=== PATIENT | male | born 1990 | race Two or more races ===

== ENCOUNTER 2016-10-29 01:49 | Emergency (ER) | payer MEDICAID ==
[~2016-10-29] VITALS: Ht 180.3 cm; Wt 88.2 kg
[2016-10-29] MEDS ORDERED: TETANUS-DIPTH-ACEL PERTUSSIS 0.5ML SYRG IM ONE (08:15)
[2016-10-29 08:26] VITALS: BP 129/95
[2016-10-29] MEDS ORDERED: HYDROcodone-ACET 5/325MG TAB PO ONE (08:30)
== END 2016-10-29 08:48 | disposition home or self-care (01) ==
LOC: ER 01:51
DX: S02.642A Fracture of ramus of left mandible, initial encounter for closed fracture (principal); S01.81XA Laceration without foreign body of other part of head, initial encounter; F17.210 Nicotine dependence, cigarettes, uncomplicated; F12.10 Cannabis abuse, uncomplicated; Z23 Encounter for immunization; Y04.8XXA Assault by other bodily force, initial encounter; Y93.89 Activity, other specified; Y99.8 Other external cause status; Y92.89 Other specified places as the place of occurrence of the external cause
CPT/HCPCS: 12011; 70486; 90471; 90715

== ENCOUNTER 2017-08-22 10:02 | Emergency (ER) | payer MEDICAID ==
[~2017-08-22] VITALS: Ht 180.3 cm; Wt 77.1 kg
[2017-08-22 10:13] VITALS: BP 141/92
== END 2017-08-22 11:06 | disposition home or self-care (01) ==
LOC: ER 10:02
DX: S46.912A Strain of unspecified muscle, fascia and tendon at shoulder and upper arm level, left arm, initial encounter (principal); F17.210 Nicotine dependence, cigarettes, uncomplicated; H91.92 Unspecified hearing loss, left ear; X58.XXXA Exposure to other specified factors, initial encounter; Y93.61 Activity, american tackle football; Y92.89 Other specified places as the place of occurrence of the external cause; Y99.8 Other external cause status

== ENCOUNTER 2018-11-11 20:12 | Emergency (ER) | payer MEDICAID ==
[~2018-11-11] VITALS: Ht 180.3 cm; Wt 72.6 kg
[2018-11-12 02:45] VITALS: BP 121/79
[2018-11-12] MEDS ORDERED: IBUPROFEN 800 MG TAB PO ONE (03:00)
[2018-11-12] MEDS ORDERED: ACETAMINOPHEN 500 MG TAB PO ONE (03:00)
== END 2018-11-12 03:19 | disposition home or self-care (01) ==
LOC: ER 20:13
DX: S43.402A Unspecified sprain of left shoulder joint, initial encounter (principal); M54.9 Dorsalgia, unspecified; F17.210 Nicotine dependence, cigarettes, uncomplicated; F12.10 Cannabis abuse, uncomplicated; W19.XXXA Unspecified fall, initial encounter; Y93.89 Activity, other specified; Y99.8 Other external cause status; Y92.89 Other specified places as the place of occurrence of the external cause
CPT/HCPCS: 72100; 73030

== ENCOUNTER 2019-09-24 21:20 | Emergency (ER) | payer MEDICAID ==
[~2019-09-24] VITALS: Ht 180.3 cm; Wt 77.1 kg
[2019-09-24 21:32] VITALS: BP 118/72
[2019-09-24] MEDS ORDERED: LIDOCAINE 1% HCL (LOCAL ANESTH.) INJ 20ML MDV IJ ONE (22:00)
[2019-09-24] MEDS ORDERED: TETANUS-DIPTH-ACEL PERTUSSIS 0.5ML SYRG IM ONE (22:00)
[2019-09-24] MEDS ORDERED: KETOROLAC TROMETH 60MG/2ML VIAL IM ONE (22:15)
[2019-09-24] MEDS ORDERED: methylPREDNISolone SOD SUCC 125 MG/2 ML VL IM ONE (22:15)
[2019-09-24] MEDS ORDERED: KETOROLAC TROMETH 30 MG/ML 1ML VIAL IV ONE (22:30)
[2019-09-24] MEDS ORDERED: methylPREDNISolone SOD SUCC 125 MG/2 ML VL IV ONE (22:30)
== END 2019-09-25 00:03 | disposition home or self-care (01) ==
LOC: ER 21:20
DX: S61.212A Laceration without foreign body of right middle finger without damage to nail, initial encounter (principal); S61.214A Laceration without foreign body of right ring finger without damage to nail, initial encounter; F17.210 Nicotine dependence, cigarettes, uncomplicated; F12.10 Cannabis abuse, uncomplicated; Y08.89XA Assault by other specified means, initial encounter; Y93.89 Activity, other specified; Y92.89 Other specified places as the place of occurrence of the external cause; Y99.8 Other external cause status
CPT/HCPCS: 12001; 73130; 90471; 90715; 96374; 96375; 99284; J1885; J2001; J2930

== ENCOUNTER 2022-06-23 00:54 | Emergency (ER) | payer MEDICAID ==
[~2022-06-23] VITALS: Ht 182.9 cm; Wt 80.0 kg
[2022-06-23 01:15] VITALS: BP 121/83
[2022-06-23 01:35] LABS: Basophils # (auto) 0.1 10 ^3/uL (0-0.2); Basophils % (auto) 0.4 % (0.0-2.0); Eosinophils # (auto) 0.3 10 ^3/uL (0-0.8); Eosinophils % (auto) 2.1 % (0.0-7.0); Hematocrit 43.6 % (41.0-53.0); Hemoglobin 15.1 g/dL (13.5-17.5); Lymphocytes # (auto) 3.4 10 ^3/uL (0.4-5.4); Lymphocytes % (auto) 25.4 % (10.0-50.0); Mean Corpuscular Hemoglobin 29.7 pg (28.0-32.0); Mean Corpuscular Hgb Conc. 34.6 g/dL (32.0-36.0); Mean Corpuscular Volume 85.8 fL (80.0-100.0); Monocytes # (auto) 0.8 10 ^3/uL (0-1.3); Monocytes % (auto) 6.2 % (0.0-12.0); Neutrophils # (auto) 8.8 10 ^3/uL (1.6-8.6); Neutrophils % (auto) 65.9 % (37.0-80.0); Red Blood Cells 5.07 10^6/uL (4.5-5.90); White Blood Cell 13.3 10^3/uL (4.4-10.8)
[2022-06-23 01:56] LABS: Albumin 3.7 g/dL (3.4-5.0); Calcium 9.1 mg/dL (8.5-10.1); Potassium 3.9 mmol/L (3.5-5.1)
[2022-06-23 01:59] LABS: Urine Bacteria NONE SEEN /hpf (None Seen); Urine Blood Negative /uL (Negative); Urine Hyaline Cast FEW /lpf (0 - 2); Urine Mucus FEW (None Seen); Urine Specific Gravity 1.023 (1.001-1.035); Urine WBC 2 /hpf (0 - 3)
[2022-06-23 01:59] LABS: BUN/Creatinine Ratio 22.1; Bilirubin, Total 0.2 mg/dL (0.2-1.0); Total Protein 7.4 g/dL (6.4-8.2)
[2022-06-23 02:13] LABS: Alcohol, Urine < 3.0 mg/dL (0-10); Amphetamine Screen, Urine NEGATIVE (NEGATIVE); Barbiturate Scree,Urine NEGATIVE (NEGATIVE); Benzodiazephine Screen, Urine NEGATIVE (NEGATIVE); Cannabinoid Screen, Urine NEGATIVE (NEGATIVE); Cocaine Screen, Urine NEGATIVE (NEGATIVE); Opiate Scree,Urine NEGATIVE (NEGATIVE); Phencyclidine Screen, Urine NEGATIVE (NEGATIVE)
== END 2022-06-23 02:03 | disposition left against medical advice (07) ==
LOC: EDUNIT# 00:54 → ER 00:54 → EDBD 00:54 → ER 02:03
DX: T40.411A Poisoning by fentanyl or fentanyl analogs, accidental (unintentional), initial encounter (principal); F17.210 Nicotine dependence, cigarettes, uncomplicated; Y92.89 Other specified places as the place of occurrence of the external cause
CPT/HCPCS: 36415; 71045; 80053; 80307; 81001; 84484; 85025; 93005

== ENCOUNTER 2023-04-25 11:04 | Emergency (ER) | payer MEDICAID ==
[~2023-04-25] VITALS: Ht 180.3 cm; Wt 88.0 kg
[2023-04-25 11:37] LABS: Basophils # (auto) 0 10 ^3/uL (0-0.2); Basophils % (auto) 0.3 % (0.0-2.0); Eosinophils # (auto) 0.5 10 ^3/uL (0-0.8); Eosinophils % (auto) 4.9 % (0.0-7.0); Hematocrit 38.8 % (41.0-53.0); Hemoglobin 12.9 g/dL (13.5-17.5); Lymphocytes # (auto) 3.1 10 ^3/uL (0.4-5.4); Lymphocytes % (auto) 30.8 % (10.0-50.0); Mean Corpuscular Hgb Conc. 33.3 g/dL (32.0-36.0); Mean Corpuscular Volume 87.1 fL (80.0-100.0); Monocytes # (auto) 0.6 10 ^3/uL (0-1.3); Monocytes % (auto) 5.5 % (0.0-12.0); Neutrophils % (auto) 58.5 % (37.0-80.0); Nucleated Red Blood Cells % 0.2 %; Red Blood Cells 4.45 10^6/uL (4.5-5.90); Red Cell Distribution Width 13.9 % (11.8-14.3); White Blood Cell 10.2 10^3/uL (4.4-10.8)
[2023-04-25 11:47] LABS: Albumin 3.6 g/dL (3.4-5.0); Magnesium 2.7 mg/dL (1.6-2.6); Potassium 3.7 mmol/L (3.5-5.1)
[2023-04-25 11:51] LABS: BUN/Creatinine Ratio 11.2 (10.0-20.0); Bilirubin, Total 0.3 mg/dL (0.2-1.0); Total Protein 6.6 g/dL (6.4-8.2)
[2023-04-25 12:13] LABS: Urine Bacteria NONE SEEN /hpf (None Seen); Urine Blood Negative /uL (Negative); Urine Mucus MANY (None Seen); Urine Specific Gravity 1.031 (1.001-1.035); Urine WBC 1 /hpf (0 - 3)
[2023-04-25 12:29] VITALS: BP 114/75; PULSE 88; RESP 17; TEMP 97.9; O2SAT 95
[2023-04-25 12:34] LABS: Amphetamine Screen, Urine NEGATIVE (NEGATIVE); Barbiturate Scree,Urine NEGATIVE (NEGATIVE); Cannabinoid Screen, Urine NEGATIVE (NEGATIVE)
[2023-04-25 12:36] LABS: Benzodiazephine Screen, Urine POSITIVE (NEGATIVE); Cocaine Screen, Urine NEGATIVE (NEGATIVE); Opiate Scree,Urine NEGATIVE (NEGATIVE); Phencyclidine Screen, Urine NEGATIVE (NEGATIVE)
== END 2023-04-25 12:21 | disposition home or self-care (01) ==
LOC: ER 11:04
DX: I89.0 Lymphedema, not elsewhere classified (principal); F11.10 Opioid abuse, uncomplicated; F17.210 Nicotine dependence, cigarettes, uncomplicated; F15.90 Other stimulant use, unspecified, uncomplicated
CPT/HCPCS: 36415; 80053; 80307; 81001; 83735; 83880; 84484; 85025; 93005